=== PATIENT | male | born 1995 ===

== ENCOUNTER 2019-07-24 15:51 | Emergency (ER) | payer SELFPAY ==
[2019-07-24 16:32] VITALS: BP 141/76
--- NOTE | 2019-07-24 16:42 | UC ---
Dental HPI - HPI Summary HPI Summary: 24 year old [place]rean-speaking male complaining of a right lower broken molars which is been bothering him over the past 3 days. The translation service was utilized during the visit. The patient is here with an Serbian-speaking friend. He denies any fever or chills. Denies any vomiting or diarrhea. - History of Current Complaint Chief Complaint: UCDentalProblem Stated Complaint: DENTAL ISSUE Time Seen by Provider: 07/24/19 16:29 Hx Obtained From: Patient, Family/Acid Bath Mixer Onset/Duration: Gradual Onset Severity: Mild Pain Intensity: 5 Aggravating Factor(s): Chewing Alleviating Factor(s): Nothing - Allergies/Home Medications Allergies/Adverse Reactions: Allergies Allergy/AdvReac Type Severity Reaction Status Date / Time No Known Allergies Allergy Verified 07/24/19 16:23 Home Medications: Home Medications Ibuprofen 200 mg PO Q6HR PRN 07/24/19 [History Confirmed 07/24/19] PMH/Surg Hx/FS Hx/Imm Hx Previously Healthy: Yes - Surgical History Surgical History: None - Family History Known Family History: Positive: Non-Contributory - Social History Alcohol Use: Occasionally Substance Use Type: None Smoking Status (MU): Never Smoked Tobacco Review of Systems All Other Systems Reviewed And Are Negative: Yes ENT: Positive: Dental Pain Is Patient Immunocompromised?: No Physical Exam Triage Information Reviewed: Yes Appearance: Well-Appearing, No Pain Distress, Well-Nourished Vital Signs: Initial Vital Signs Temp 97.8 F 07/24/19 16:25 Pulse 76 07/24/19 16:25 Resp 16 07/24/19 16:25 BP 141/76 07/24/19 16:25 Pulse Ox 99 07/24/19 16:25 Vital Signs Reviewed: Yes Eyes: Positive: Conjunctiva Clear ENT: Positive: Pharynx normal, TMs normal, Uvula midline Dental: Positive: Dental Fracture @, Other: - The right lower distal 3 molars are broken almost to the gumline with swelling and erythema of the gumline itself. No evidence of abscess formation. These are not new breaks. Neck: Positive: Supple, Nontender, No Lymphadenopathy Respiratory: Positive: Lungs clear, Normal breath sounds, No respiratory distress, No accessory muscle use Cardiovascular: Positive: RRR, No Murmur, Pulses Normal, Brisk Capillary Refill Musculoskeletal Exam: Normal Neurological Exam: Normal Psychological Exam: Normal Skin Exam: Normal Dental Complaint Course/Dx - Course Course Of Treatment: The patient is comfortable here. I am sending and a prescription for Motrin 600 mg by mouth every 8 hours which can be alternated with Tylenol every 4 hours. I'm also going to start him on Augmentin 875 mg by mouth twice a day 10 days. The friend who is with him states that he can make an appointment with the dentist early next week. - Differential Dx/Diagnosis Provider Diagnosis: Toothache Discharge ED - Sign-Out/Discharge Documenting (check all that apply): Patient Departure All imaging exams completed and their final reports reviewed: No Studies - Discharge Plan Condition: Fair Disposition: HOME Prescriptions: Amoxicillin/Clavulanate TAB* [Augmentin TAB 875*] 875 mg PO BID 10 Days #20 tab Ibuprofen TAB* [Motrin TAB* 600 MG] 600 mg PO Q8H PRN #21 tab PRN Reason: Pain - Mild Patient Education Materials: Toothache (ED) Referrals: [facility] [Outside] No Primary Care Phys,NOPCP [Primary Care Provider] - Additional Instructions: You may alternate Tylenol every 4 hours with Motrin every 8 hours for pain. Take the Augmentin with food. Follow-up with a dentist by telephone on Friday to make an appointment to be seen before the antibiotic is completed. - Billing Disposition and Condition Condition: FAIR Disposition: Home
== END 2019-07-24 17:01 | disposition home or self-care (01) ==
LOC: UCCORT 15:51
DX: K08.89 Other specified disorders of teeth and supporting structures (principal)
CPT/HCPCS: 99202; G0463